=== PATIENT | female | born 1940 | race Two or more races ===

== ENCOUNTER 2017-09-04 19:36 | Emergency (ER) | payer SELFPAY ==
[~2017-09-04] VITALS: Ht 152.4 cm; Wt 77.1 kg
[2017-09-04] MEDS ORDERED: cloNIDine HCL 0.1 MG TAB ONE (20:02)
[2017-09-04] MEDS ORDERED: cloNIDine HCL 0.1 MG TAB PO ONE (20:15)
[2017-09-04 20:26] LABS: Basophils # (auto) 0 uL; Basophils % (auto) 0.8 % (0.0-2.0); Eosinophils # (auto) 0.3 uL; Hematocrit 37.3 % (36.0-46.0); Hemoglobin 12.4 g/dL (12.2-16.2); Lymphocytes # (auto) 1.5 uL; Lymphocytes % (auto) 26.4 % (10.0-50.0); Mean Corpuscular Hemoglobin 30.9 pg (28.0-32.0); Mean Corpuscular Hgb Conc. 33.3 g/dL (32.0-36.0); Mean Corpuscular Volume 92.8 fL (80.0-100.0); Monocytes # (auto) 0.6 uL; Neutrophils # (auto) 3.3 uL; Neutrophils % (auto) 57.8 % (37.0-80.0); Nucleated Red Blood Cells % 0.1 %; Platelet Count (auto) 142 10^3/uL (140-450); Red Blood Cells 4.02 10^6/uL (4.0-5.20); Red Cell Distribution Width 14.1 % (11.8-14.3); White Blood Cell 5.7 10^3/uL (4.4-10.8)
[2017-09-04 20:40] LABS: Albumin 3.7 g/dL (3.4-5.0); BUN/Creatinine Ratio 28.4; Bilirubin, Total 0.3 mg/dL (0.2-1.0); Calcium 8.7 mg/dL (8.5-10.1); Potassium 4.2 mmol/L (3.5-5.1); Total Protein 7.5 g/dL (6.4-8.2)
[2017-09-04 23:44] LABS: Urine Bacteria FEW /hpf (None Seen); Urine Blood Negative /uL (Negative); Urine Mucus FEW (None Seen); Urine Specific Gravity 1.025 (1.001-1.035); Urine WBC 8 /hpf (0 - 5)
[2017-09-05] MEDS ORDERED: VANCOMYCIN 1GM/250ML 250 ML IV ONE (00:45)
[2017-09-05 01:51] VITALS: BP 123/62
[2017-09-05] MEDS ORDERED: cefTRIAXone 1GM/10ml IVPUSH 10 ML IV ONE (02:00)
[2017-09-05] MEDS ORDERED: diphenhdrAMINE HCL 50 MG/1 ML VL ONE (02:38)
[2017-09-05] MEDS ORDERED: diphenhdrAMINE HCL 50 MG/1 ML VL IV ONE (02:45)
== END 2017-09-05 04:08 | disposition home or self-care (01) ==
LOC: ER 19:36
DX: L03.115 Cellulitis of right lower limb (principal); I10 Essential (primary) hypertension; E78.5 Hyperlipidemia, unspecified; Z88.0 Allergy status to penicillin
CPT/HCPCS: 36415; 73590; 73700; 80053; 81001; 83605; 85025; 87040; 93005; 96365; 96375; 99285; J1200; J3370; J7030

== ENCOUNTER 2023-04-01 11:36 | Emergency (ER) | payer MEDICAID, OTHER ==
[~2023-04-01] VITALS: Ht 157.5 cm; Wt 51.6 kg
[2023-04-01 12:24] LABS: Urine Bacteria NONE SEEN /hpf (None Seen); Urine Blood Negative /uL (Negative); Urine Clarity Clear (Clear); Urine Protein, UAD Negative (Negative); Urine Urobilinogen Normal (Negative); Urine WBC <1 /hpf (0 - 5); Urine pH 6.5 (5.0-8.0)
[2023-04-01 12:30] LABS: Basophils # (auto) 0.1 10 ^3/uL (0-0.2); Basophils % (auto) 1.1 % (0.0-2.0); Eosinophils # (auto) 0.2 10 ^3/uL (0-0.8); Hematocrit 37.3 % (36.0-46.0); Hemoglobin 12.2 g/dL (12.2-16.2); Lymphocytes # (auto) 1.2 10 ^3/uL (0.4-5.4); Lymphocytes % (auto) 21.2 % (10.0-50.0); Mean Corpuscular Hemoglobin 31.8 pg (28.0-32.0); Mean Corpuscular Hgb Conc. 32.7 g/dL (32.0-36.0); Mean Corpuscular Volume 97.5 fL (80.0-100.0); Monocytes # (auto) 0.5 10 ^3/uL (0-1.3); Neutrophils # (auto) 3.8 10 ^3/uL (1.6-8.6); Neutrophils % (auto) 66.7 % (37.0-80.0); Red Blood Cells 3.83 10^6/uL (4.0-5.20); White Blood Cell 5.7 10^3/uL (4.4-10.8)
[2023-04-01 12:30] LABS: Urine Color Straw (Yellow)
[2023-04-01 12:43] LABS: INR 1.05 (0.9-1.15); Partial Thromboplastin Time 32.1 SEC (24.5-34.5)
[2023-04-01 12:47] LABS: Alanine Aminotransferase 12 U/L (7-40); Alkaline Phosphatase 79 U/L (46-116); Anion Gap 6 (5-15); Aspartate Aminotransferase 13 U/L (13-40); BUN/Creatinine Ratio 21.4 (10.0-20.0); Blood Urea Nitrogen 15 mg/dL (9-23); Calcium 8.7 mg/dL (8.5-10.1); Carbon Dioxide 28 mmol/L (20-30); Chloride 105 mmol/L (98-107); Glucose 158 mg/dL (74-106); Sodium 139 mmol/L (136-145)
[2023-04-01 12:48] LABS: Albumin 4.1 g/dL (3.2-4.8); Total Protein 6.5 g/dL (5.7-8.2)
[2023-04-01 12:49] LABS: Bilirubin, Total 0.5 mg/dL (0.2-1.0)
[2023-04-01] MEDS ORDERED: MECLIZINE HCL 25 MG TAB PO ONE (14:00)
[2023-04-01] MEDS ORDERED: cloNIDine HCL 0.1 MG TAB PO ONE (14:45)
[2023-04-01 16:27] VITALS: BP 107/66; PULSE 71; RESP 17; TEMP 97.5; O2SAT 99
[2023-04-01] MEDS ORDERED: MECL1TAB42 PO (17:02)
== END 2023-04-01 17:08 | disposition home or self-care (01) ==
LOC: ER 11:36
DX: I10 Essential (primary) hypertension (principal); R42 Dizziness and giddiness; H54.8 Legal blindness, as defined in USA; E78.5 Hyperlipidemia, unspecified; Z88.0 Allergy status to penicillin; Z88.8 Allergy status to other drugs, medicaments and biological substances; Z86.2 Personal history of diseases of the blood and blood-forming organs and certain disorders involving the immune mechanism
CPT/HCPCS: 36415; 70450; 71045; 80053; 81001; 84484; 85025; 85610; 85730; 93005; 99285; J8597